=== PATIENT | male | born 1985 | race Caucasian/White ===

== ENCOUNTER → 2018-07-19 05:54 | Outpatient (CLI) | payer OTHER, SELFPAY ==
--- NOTE | 2018-07-19 | DI.MRI.S_ITS ---
PROCEDURE: MR WRIST LT WO CON INDICATIONS: Weakness TECHNIQUE: Noncontrast coronal proton density fast spin echo and T2 fast spin echo with fat saturation; coronal 3-D gradient echo, axial T1 spin echo and T2 fast spin echo with fat saturation, sagittal T1 spin echo through the wrist. COMPARISON: None. FINDINGS: Image quality: Excellent. Bones and cartilage: The carpal bones are normally aligned. T2 hyperintense signal is seen involving the medial aspect of distal scaphoid. No discrete fracture line is seen. Finding may represent bony contusion. No definite fracture or dislocation is seen. No other area of abnormal marrow signal. No evidence for avascular necrosis. Overlying cartilage surfaces appear normal. Carpal ligaments: The scapholunate and lunotriquetral ligaments appear intact. In the absence of intra-articular contrast, the extrinsic carpal ligaments are not well identified. On sagittal images, the pisohamate ligament appears intact. Triangular fibrocartilage complex: There is signal abnormality involving ulnar aspects of triangular fibrocartilage suggestive of triangular fibrocartilage tear near its ulnar attachment. The adjacent meniscal homolog appears normal in the absence of intra-articular contrast. The extensor carpi ulnaris tendon is normal in location and morphology. Tendons and soft tissues: The carpal tunnel structures appear normal, including the median nerve. The ulnar nerve appears normal within Guyon's canal. All six extensor tendon compartments demonstrate normal morphology, without pathologic tendon sheath fluid. No soft tissue ganglion cysts. IMPRESSION: 1. Finding is concerning for triangular fibrocartilage tear near its ulnar attachment. 2. Marrow signal abnormality involving radial periphery of distal scaphoid concerning for bony contusion. No fracture or dislocation. No evidence of avascular necrosis. 3. Wrist tendons and ligaments are grossly intact. Dictated by: Isak Bowser M.D. on 07/19/2018 at 17:08 Approved by: Isak Bowser M.D. on 07/19/2018 at 17:18
== END ==
PROVIDERS: Visit Provider Student in an Organized Health Care Education/Training Program
DX: R53.1 Weakness (principal); R20.2 Paresthesia of skin; R20.0 Anesthesia of skin; R29.898 Other symptoms and signs involving the musculoskeletal system
CPT/HCPCS: 73221

== ENCOUNTER → 2018-07-27 06:07 | Outpatient (CLI) | payer OTHER, SELFPAY ==
--- NOTE | 2018-07-27 | DI.MRI.S_ITS ---
PROCEDURE: MR CERVICAL SPINE WO/W CON INDICATIONS: TREMOR/ABNORMAL RESULTS OF FUN TECHNIQUE: Noncontrast sagittal T1 spin echo and T2 fast spin echo, sagittal STIR, foraminal oblique sagittal T2 fast spin echo, axial gradient echo or T2 fast spin echo through the cervical spine. After the administration of contrast, axial and sagittal T1 spin echo with fat saturation through the cervical spine. COMPARISON: None. FINDINGS: Image quality: Excellent. Alignment and curvature: There is normal bony alignment. Marrow: Marrow is normal in overall signal, without suspicious enhancement. Spinal cord: Visualized spinal cord has normal size and signal. No cerebellar tonsillar herniation. No abnormal intramedullary enhancement. Paraspinous soft tissues: No paravertebral masses or suspicious enhancement. C2-3: Normal appearance. C3-4: Normal appearance. C4-5: Normal appearance. C5-6: Normal appearance. C6-7: Preserved disc height and disc signal. There is mild posterior disc bulge. The central canal is mildly narrowed. Mild left foraminal stenosis. Patent right neuroforamen. C7-T1: Normal appearance. IMPRESSION: 1. Mild degenerative disc disease at C6-C7. 2. Mild central canal stenosis at C6-C7. 3. Mild left foraminal stenosis at C6-C7. Dictated by: Patel Garcia M.D. on 07/27/2018 at 11:38 Approved by: Patel Garcia M.D. on 07/27/2018 at 17:53
--- NOTE | 2018-07-27 | DI.MRI.S_ITS ---
PROCEDURE: MR HEAD/BRAIN WO/W CON INDICATIONS: TREMOR/ABNORMAL RESULTS OF FUN TECHNIQUE: Noncontrast axial T1 spin echo, axial T2 fast spin echo, sagittal and axial FLAIR, coronal T2 fast spin echo, axial gradient echo, axial diffusion and ADC through the brain. After the administration of contrast, axial and coronal T1 spin echo with fat saturation through the brain. COMPARISON: None. FINDINGS: Image quality: Excellent. CSF spaces: Basal cisterns are patent. No extra-axial fluid collections. Ventricles are normal in size and shape. Brain: No midline shift. No intracranial bleeds or masses. No abnormal intracranial enhancement. There is cerebral volume loss for age. There is periventricular white matter chronic small vessel ischemic change. The brainstem appears normal. Diffusion-weighted images demonstrate no acute ischemic insults. No chronic ischemic insults. Normal intravascular flow voids are present. Skull and face: Calvarial marrow is normal in signal. Orbits appear normal. Sinuses: Mastoids appear clear. Mild maxillary sinus ucosal thickening is noted. IMPRESSION: 1. No acute intracranial abnormalities. No findings to explain tumor. Dictated by: Patel Garcia M.D. on 07/27/2018 at 8:45 Approved by: Patel Garcia M.D. on 07/27/2018 at 9:33
== END ==
PROVIDERS: Visit Provider Orthopaedic Surgery
DX: R94.09 Abnormal results of other function studies of central nervous system (principal); R25.1 Tremor, unspecified; M50.323 Other cervical disc degeneration at C6-C7 level; M48.02 Spinal stenosis, cervical region
CPT/HCPCS: 70553; 72156; A9579

== ENCOUNTER → 2018-08-12 12:43 | Outpatient (CLI) | payer OTHER, SELFPAY | PROVIDERS: PCP Orthopaedic Surgery; Visit Provider Orthopaedic Surgery | DX: M79.643 Pain in unspecified hand (principal) | CPT/HCPCS: 95885; 95886; 95910 ==

== ENCOUNTER → 2018-08-17 11:42 | Outpatient (CLI) | payer OTHER, SELFPAY ==
--- NOTE | 2018-08-17 | DI.MRI.S_ITS ---
PROCEDURE: MR ELBOW LT W CON INDICATIONS: LEFT UPPER EXTREMITY TREMORS TECHNIQUE: Noncontrast coronal proton density fast spin echo and T2 fast spin echo with fat saturation, axial and sagittal T1 spin echo and T2 fast spin echo with fat saturation through the elbow. COMPARISON: None. FINDINGS: Image quality: Excellent. Lateral structures: The lateral ulnar collateral ligament and radial collateral ligament both appear intact. The overlying common extensor tendon appears grossly intact although there is adjacent soft tissue edema of unknown clinical significance or etiology. Medial structures: The ulnar collateral ligament appears intact. The overlying common flexor tendon appears mildly thickened with intrasubstance signal change and adjacent soft tissue edema. . The ulnar nerve appears normal in size and signal within the cubital tunnel. Anterior structures: The biceps and brachialis tendons both appear intact as they insert onto the proximal radius and ulna, respectively. No bicipitoradial bursal fluid. The median and radial neurovascular bundles appear normal; no focal muscle atrophy to suggest nerve impingement. Posterior structures: The conjoint triceps tendon from the long and lateral heads appears intact. The medial head of the triceps tendon also appears normal, with direct muscle insertion onto the olecranon. No olecranon bursal fluid. Bone and cartilage: No bone marrow contusions or fractures. No osteochondral injuries. IMPRESSION: Mild thickening and internal signal changes involving the common flexor tendon suggesting mild tendinopathy, possibly low-grade medial epicondylitis syndrome. Additional minimal subcutaneous soft tissue edema adjacent to the lateral epicondyle although the common extensor tendon appears grossly intact. Dictated by: Jeremías Smith M.D. on 08/17/2018 at 13:56 Approved by: Jeremías Smith M.D. on 08/17/2018 at 14:04
== END ==
PROVIDERS: PCP Orthopaedic Surgery; Visit Provider Orthopaedic Surgery
DX: R25.1 Tremor, unspecified (principal)
CPT/HCPCS: 73221

== ENCOUNTER → 2018-12-10 07:54 | Outpatient (CLI) | payer OTHER, SELFPAY ==
--- NOTE | 2018-12-10 | DI.MRI.S_ITS ---
PROCEDURE: MR BRACHIAL PLEXUS WWO CON INDICATIONS: Lesion of ulnar nerve, left upper limb TECHNIQUE: Noncontrast axial, coronal, and sagittal T1 spin echo and STIR through the affected brachial plexus region. Additional axial T1 spin echo and coronal T2 fast spin echo acquired through both brachial plexuses with a large [id number]. Optional contrast may be given, followed by axial, coronal, and sagittal T1 spin echo with fat saturation through the affected side. COMPARISON: [facility], MR, MR CERVICAL SPINE WO/W CON, 07/27/2018, 6:42. FINDINGS: Image quality: Excellent. Brachial plexus: The C5-T1 origins of the brachial plexus appear normal, without pseudomeningoceles to suggest nerve root avulsion. Within the scalene triangle, costoclavicular space, and pectoralis minor space, the visualized trunks and/or cords of the brachial plexus demonstrate normal morphology and signal. Soft tissues: No supraclavicular adenopathy by size criteria. Superior pleural surfaces are normal in thickness. Jugular veins and carotid arteries appear normal in size. Bones: Marrow demonstrates normal overall signal. IMPRESSION: No abnormality of the brachial plexus is identified on these images. No abnormal enhancement can be seen. Dictated by: Roger Del Angel M.D. on 12/10/2018 at 8:45 Approved by: Roger Del Angel M.D. on 12/10/2018 at 8:48
== END ==
PROVIDERS: PCP Orthopaedic Surgery; Visit Provider Orthopaedic Surgery
DX: G56.22 Lesion of ulnar nerve, left upper limb (principal); Z98.890 Other specified postprocedural states
CPT/HCPCS: 71552; A9579

== ENCOUNTER 2020-05-22 09:21 | Emergency (ER) | payer OTHER, SELFPAY ==
[2020-05-22 09:21] VITALS: BP 118/70; PULSE 70; RESP 14; TEMP 36.6; O2SAT 98; BMI 22.8
--- NOTE | 2020-05-22 09:46 | ED.GIBLEED ---
HPI - GI Bleed General Chief complaint: GI Bleed Stated complaint: blood in stool,persistent drip Time Seen by Provider: 05/22/20 09:33 Source: patient Mode of arrival: Ambulatory Limitations: no limitations History of Present Illness HPI Narrative: Patient is a 35-year-old male history of internal and external hemorrhoids presenting today with rectal bleeding. He said he had a bowel movement and noticed some blood however continued to drip blood. He had a 2nd bowel movement and then the bleeding stopped. He has had banding at his hemorrhoids the past. He denies any abdominal pain dizziness lightheadedness shortness of breath. Pain Consistency: now resolved Severity: mild Related Data Allergies Allergy/AdvReac Type Severity Reaction Status Date / Time No Known Drug Allergies Allergy Verified 05/22/20 09:26 Review of Systems Review of Systems Narrative: GENERAL: Denies chills, fatigue, malaise, fever, sweats, travel HEENT: Denies sinus pain, ear pain, sore throat, difficulty swallowing, neck pain RESPIRATORY: Denies dyspnea, cough, wheezing, hemoptysis, sputum. CARDIOVASCULAR: Denies chest pain, palpitations, orthopnea, edema GASTROINTESTINAL: See HPI. Denies nausea, vomiting, abdominal pain, diarrhea, constipation : Denies dysuria, frequency, incontinence, hematuria, urinary retention, flank pain. MUSCULOSKELETAL: Denies weakness, joint pain, or bony pain SKIN: No rash, no erythema, no pruritus NEUROLOGIC: Denies weakness, dizziness, headache, numbness, change in speech, confusion PSYCHIATRIC: No concerning psychosocial issues. 12 point review of systems is negative except for those stated above and HPI Patient History Medical History Hemorrhoids Social History Smoking Status: Current some day smoker Smoking Status: Current some day smoker alcohol intake frequency: holidays/special occasions only Substance Use Type: does not use Exam Initial Vital Signs Initial Vital Signs: Vital Signs Temperature 97.9 F 05/22/20 09:21 Pulse Rate 70 05/22/20 09:21 Respiratory Rate 14 05/22/20 09:21 Blood Pressure 118/70 05/22/20 09:21 Pulse Oximetry 98 05/22/20 09:21 GENERAL: Well-appearing, well-nourished and in no acute distress. CARDIOVASCULAR: peripheral pulses in tact, cap refill <2 sec RESPIRATORY: No respiratory distress, speaks in full sentences without difficulty ABDOMEN: Soft, nontender, no guarding or rebound RECTAL: Very large hemorrhoids noted no active bleeding. EXTREMITIES: Normal range of motion, no clubbing or edema. Neurovascularly intact NEUROLOGICAL: Cranial nerves II through XII grossly intact. Normal gait and speech. SKIN: Warm, dry, no petechiae, no rashes or lesions. Course Vital Signs Vital signs: Vital Signs - 8 hr 05/22/20 09:21 Temperature 97.9 F Pulse Rate 70 Respiratory Rate 14 Blood Pressure 118/70 Pulse Oximetry 98 MDM - GI Bleed MDM Narrative Medical decision making narrative: At this time there is no active bleeding very large hemorrhoids. Recommend patient follow up with his PCM he may require further treatment. He said that he has had steroid suppositories in the past nothing really helps he just waits out. Discharge Plan Departure Patient Disposition: Home Clinical Impression: Hemorrhoids Instructions: DI for Hemorrhoids Activity Restrictions/Additional Instructions: *You have been diagnosed with hemorrhoids *What to do: Please follow-up with your doctors in regards to hemorrhoids. He may require more banding. No active bleeding seen at this time. *Continue to take medications as directed *Follow up with your primary care provider in 2-3 days *Return to ER if you should have persistent bleeding, abdominal pain, dizziness lightheadedness or passing out or any new, worsening or concerning symptoms Referrals: Mina Greene MD [Primary Care Provider] -
== END 2020-05-22 09:57 | disposition home or self-care (01) ==
LOC: ED 09:58
PROVIDERS: Emergency Provider Emergency Medicine; PCP Orthopaedic Surgery
DX: K64.9 Unspecified hemorrhoids (principal)
CPT/HCPCS: 99281